=== PATIENT | female | born 2000 | race Caucasian/White ===

== ENCOUNTER 2020-03-07 20:47 | Emergency (ER) | payer SELFPAY ==
[~2020-03-07] VITALS: Ht 170.2 cm; Wt 60.3 kg
[2020-03-07 20:52] VITALS: BP 148/83; Ht 170.2 cm; Wt 60.3 kg
== END 2020-03-08 00:20 | disposition left against medical advice (07) ==
LOC: ED 20:47
DX: Z53.21 Procedure and treatment not carried out due to patient leaving prior to being seen by health care provider (principal)